=== PATIENT | male | born 1990 | race Caucasian/White ===

== ENCOUNTER 2017-03-26 15:26 | Emergency (ER) | payer MEDICAID ==
[2017-03-26 15:42] VITALS: BP 135/78
== END 2017-03-26 17:16 | disposition left against medical advice (07) ==
LOC: ED 15:26
DX: Z53.21 Procedure and treatment not carried out due to patient leaving prior to being seen by health care provider (principal)

== ENCOUNTER 2018-04-01 14:25 | Emergency (ER) | payer MEDICAID ==
[~2018-04-01] VITALS: Ht 170.2 cm; Wt 109.3 kg
[2018-04-01 14:47] VITALS: BP 141/92; Ht 170.2 cm; Wt 109.3 kg
== END 2018-04-01 15:57 | disposition home or self-care (01) ==
LOC: ED 14:25
DX: J02.0 Streptococcal pharyngitis (principal); F41.9 Anxiety disorder, unspecified

== ENCOUNTER 2019-03-23 13:09 | Emergency (ER) | payer MEDICAID ==
[~2019-03-23] VITALS: Ht 172.7 cm; Wt 105.7 kg
[2019-03-23 13:54] VITALS: Ht 172.7 cm; Wt 105.7 kg
[2019-03-23 15:08] VITALS: BP 125/74
== END 2019-03-23 15:08 | disposition home or self-care (01) ==
LOC: ED 13:09
DX: S61.213A Laceration without foreign body of left middle finger without damage to nail, initial encounter (principal); W26.0XXA Contact with knife, initial encounter; Y93.89 Activity, other specified; Y92.89 Other specified places as the place of occurrence of the external cause; Y99.8 Other external cause status